=== PATIENT | female | born 1990 | race Caucasian/White ===

== ENCOUNTER 2020-08-03 14:15 | Emergency (ER) | payer OTHER ==
[2020-08-03 14:20] VITALS: BP 113/62; PULSE 98; TEMP 99; BMI 26.6
== END 2020-08-03 15:30 | disposition home or self-care (01) ==
LOC: FER 14:15
DX: R22.0 Localized swelling, mass and lump, head (principal)
CPT/HCPCS: 99282-25

== ENCOUNTER 2020-09-20 22:29 | Emergency (ER) | payer OTHER ==
[2020-09-20 22:36] VITALS: BP 123/67; PULSE 80; TEMP 98.8; BMI 26.9
[2020-09-20] MEDS ORDERED: KETOROLAC TROMETHAMINE 60 MG/2 ML VIAL IM ONE (22:37)
[2020-09-20] MEDS ORDERED: METOCLOPRAMIDE HCL 10 MG TABLET (FP) PO ONE ×2 (22:37→22:39)
[2020-09-20] MEDS ORDERED: KETOROLAC TROMETHAMINE 60 MG/2 ML VIAL ONE (22:39)
== END 2020-09-20 23:31 | disposition home or self-care (01) ==
LOC: FER 22:29
PROC: 3E0233Z Introduction of Anti-inflammatory into Muscle, Percutaneous Approach (ICD-10-PCS; principal; 2020-09-20)
DX: G43.909 Migraine, unspecified, not intractable, without status migrainosus (principal)
CPT/HCPCS: 70450-TC; 99284-25

== ENCOUNTER 2020-11-17 19:48 | Emergency (ER) | payer OTHER ==
[2020-11-17 20:00] VITALS: BP 112/67; PULSE 71; TEMP 98.9; BMI 26.9
== END 2020-11-17 20:51 | disposition home or self-care (01) ==
LOC: FER 19:48
DX: S40.862A Insect bite (nonvenomous) of left upper arm, initial encounter (principal)
CPT/HCPCS: 36415; 86618; 99283-25